=== PATIENT | male | born 1955 | race Caucasian/White ===

== ENCOUNTER 2018-07-28 10:56 | Emergency (ER) | payer OTHER ==
[2018-07-28] MEDS ORDERED: Midazolam 1 MG/ML 2 ML SDV IVPUSH ONE (11:09)
--- NOTE | 2018-07-28 11:15 | EDM.PDOC ---
ED HPI GENERAL MEDICAL PROBLEM - General Chief Complaint: Lower Extremity Injury/Pain Stated Complaint: VIA [facility] Time Seen by Provider: 07/28/18 11:08 Source of Information: Reports: Patient, EMS, Family History Limitations: Reports: No Limitations - History of Present Illness INITIAL COMMENTS - FREE TEXT/NARRATIVE: 62-year-old male slipped on the ice within the last hour, following very hard on his right lateral pelvis and hip. He was unable to get up so rolled over onto his knees causing some abrasions on his knees. He also has some mild tenderness and abrasion on his right palm. EMS was called because he was unable to get up, he was given 200 g of fentanyl in route along with a small dose of IV Versed for muscle spasm. He is otherwise healthy. He is still having significant pain in the right hip. Onset: Sudden Duration: Hour(s): (Within the last 2 hours) Location: Reports: Lower Extremity, Right Quality: Reports: Sharp, Stabbing Severity: Moderate Worsens with: Reports: Movement - Related Data Allergies Allergy/AdvReac Type Severity Reaction Status Date / Time Penicillins Allergy Hives Verified 07/28/18 11:01 Home Meds: Home Meds NK [No Known Home Meds] 07/28/18 [History] Past Medical History - Past Surgical History GI Surgical History: Reports: Hernia, Abdominal Social & Family History - Tobacco Use Smoking Status *Q: Never Smoker Review of Systems - Review of Systems Review Of Systems: See Below Constitutional: Denies: Fever Respiratory: Denies: Shortness of Breath Cardiovascular: Denies: Chest Pain GI/Abdominal: Denies: Abdominal Pain, Nausea, Vomiting Genitourinary: Reports: No Symptoms Skin: Reports: Bruising (Superficial bruising and contusions on the knees bilaterally, abrasion on the right palm and small abrasions on the elbow) Neurological: Reports: Other (No head injury). Denies: Confusion, Headache ED EXAM, GENERAL - Physical Exam Exam: See Below Exam Limited By: No Limitations General Appearance: Alert, Mild Distress (Fairly uncomfortable, especially with any movement of the right hip or right leg) Respiratory/Chest: No Respiratory Distress GI/Abdominal: Non-Tender Extremities: Other (Patient is holding his right hip flexed at 45, and his knee at 90 which is the most comfortable position. Any passive internal or external rotation causes intense pain over the lateral right hip and pelvis. There is no objective visual signs of trauma such as abrasion or bruising or swelling, no significant deformity. Palpation tenderness is significant just under the right iliac crest and above the right femur over the greater trochanteric area.) Neurological: Alert, Oriented Psychiatric: Anxious Skin Exam: Warm, Dry Course - Vital Signs Last Recorded V/S: Last Vital Signs Temp 98.2 F 07/28/18 11:11 Pulse 69 07/28/18 11:11 Resp 14 07/28/18 11:11 BP 134/77 07/28/18 11:11 Pulse Ox 98 07/28/18 11:11 - Orders/Labs/Meds Meds: Medications Discontinued Medications Generic Name Dose Route Start Last Admin Trade Name Emily PRN Reason Stop Dose Admin Hydromorphone HCl 1 mg 07/28/18 11:24 07/28/18 11:34 Dilaudid IVPUSH 07/28/18 11:25 1 mg ONETIME ONE Administration Hydromorphone HCl Confirm 07/28/18 11:25 Dilaudid Administered 07/28/18 11:26 Dose 1 mg .ROUTE .STK-MED ONE Hydromorphone HCl 1 mg 07/28/18 13:02 07/28/18 13:09 Dilaudid IVPUSH 07/28/18 13:03 1 mg ONETIME ONE Administration Midazolam HCl 2 mg 07/28/18 11:09 07/28/18 11:34 Versed 1 Mg/Ml IVPUSH 07/28/18 11:10 2 mg ONETIME ONE Administration - Re-Assessments/Exams Free Text/Narrative Re-Assessment/Exam: 07/28/18 11:16 Pelvis and right hip x-rays were obtained. Patient was given 2 mg of IV Versed to help him with muscle spasm prior to x-ray. 07/28/18 12:45 X-ray showed a comminuted right acetabular fracture. After orthopedic consultation with [facility] in [place], they agreed to accept the patient. He'll be sent by EMS. Departure - Departure Time of Disposition: 14:09 Disposition: DC/Tfer to Other 70 Condition: Fair Clinical Impression: Closed right acetabular fracture Qualifiers: Encounter type: initial encounter Sublocation of acetabulum: unspecified portion of acetabulum Fracture alignment: displaced Qualified Code(s): S32.401A - Unspecified fracture of right acetabulum, initial encounter for closed fracture - Discharge Information Referrals: Darryn Richter MD [Primary Care Provider] - Forms: ED Department Discharge Care Plan Goals: Patient is to be transferred to [facility] for specialty evaluation and treatment of a comminuted right acetabular fracture.
[2018-07-28] MEDS ORDERED: HYDROmorphone 1 MG/ML Syringe IVPUSH ONE ×2 (11:24→13:02)
[2018-07-28] MEDS ORDERED: HYDROmorphone 1 MG/ML Syringe ONE (11:25)
--- NOTE | 2018-07-28 12:03 | CRLCR ---
3 VIEWS pelvis and right hip INDICATION: Injury. IMPRESSION: Medial wall right acetabular fracture Grossly anatomic alignment although minimally superior positioned femoral head. Further assessment with CT scan of the bony pelvis is suggested. FINDINGS: There is a fracture of the medial acetabulum. No femur fracture is seen. Possible osteophytic spurring is noted from the lateral margin of the superior left hip joint. Dictated by Diogo Zavala MD @ Jul 28 2018 11:59AM Signed by Dr. Diogo Zavala @ Jul 28 2018 12:01PM
== END 2018-07-28 14:10 | disposition other institution (70) ==
LOC: JP.ED 10:56
DX: S32.471A Displaced fracture of medial wall of right acetabulum, initial encounter for closed fracture (principal); Z88.0 Allergy status to penicillin; W00.0XXA Fall on same level due to ice and snow, initial encounter
CPT/HCPCS: 73502; 96374; 96375; 96376; 99284; J1170; J2250